=== PATIENT | male | born 1965 | race Caucasian/White ===

== ENCOUNTER → 2018-11-18 | Day surgery (SDC) | payer BC ==
[~2018-11-18] MED LIST: MIDAZOLAM HCL 2 MG/2 ML VIAL ONE; NEXIUM PO; PROPOFOL IV EMULSION 10 MG/ML 50 ML VIAL ONE; TAMIFLU75 MG PO
--- OUTSIDE RECORDS SUMMARY | 2018-11-18 10:44 | XMS REPORT | Clinical Summary ---
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 The patient was then given a 60 minute intravenous infusion of CCK 1.5 ug while dynamic imaging of the abdomen was performed; these images were used to calculate the gallbladder ejection fraction. Findings: There is normal uptake of tracer by the liver with normal excretion into the biliary tree. Tracer proceeds normally into the gallbladder and small bowel. Gallbladder ejection fraction=99% (normal is >30%) Impression: 1. No evidence of acute cholecystitis or common bile duct obstruction. 2. Normal gallbladder ejection fraction. [facility]-[id number] Procedure Note Interface, Radiology Results Incoming - 11/16/2018 1:03 PM GUNSTOCK REPAIRER Procedure: NM HEPATOBILIARY W PHARM (HIDA SCAN W PHARM) Clinical History: G43.A1 Cyclical vomiting intractable, vomiting wiht nausea Technique: The patient was injected with 4 mCi of [id number] intravenously, followed by dynamic imaging of the abdomen in the anterior projection for 1 hour. The patient was then given a 60 minute intravenous infusion of CCK 1.5 ug while dynamic imaging of the abdomen was performed; these images were used to calculate the gallbladder ejection fraction. Findings: There is normal uptake of tracer by the liver with normal excretion into the biliary tree. Tracer proceeds normally into the gallbladder and small bowel. Gallbladder ejection fraction=99% (normal is >30%) Impression: 1. No evidence of acute cholecystitis or common bile duct obstruction. 2. Normal gallbladder ejection fraction. [facility]-[id number] Performing Organization Address City/State/Zipcode Phone Number [facility] [address] [place] [address] after 11/17/2017 Insurance Payer Benefit Subscriber ID Type Phone Address Plan / Group BCBS BCBS xxxxxxxxxxxx PPO CHOICE PPO/TAD COLON PPO Advance Directives Patient has advance care planning documents on file. For more information, jeferson e contact: Kelvin Gonzalez [phone] [place] [address]
[2018-11-18 11:55] VITALS: BP 121/69
== END | disposition home or self-care (01) ==
LOC: OR 10:33
PROVIDERS: ATTEND Internal Medicine
DX: K29.50 Unspecified chronic gastritis without bleeding (principal); K25.9 Gastric ulcer, unspecified as acute or chronic, without hemorrhage or perforation; K29.80 Duodenitis without bleeding; B96.81 Helicobacter pylori [H. pylori] as the cause of diseases classified elsewhere; K20.9 Esophagitis, unspecified; K44.9 Diaphragmatic hernia without obstruction or gangrene; Z88.8 Allergy status to other drugs, medicaments and biological substances; Z01.810 Encounter for preprocedural cardiovascular examination; Z68.33 Body mass index [BMI] 33.0-33.9, adult; Z86.19 Personal history of other infectious and parasitic diseases; Z87.891 Personal history of nicotine dependence
CPT/HCPCS: 43239; 93005; J2250; J2704

== ENCOUNTER → 2018-12-02 | Day surgery (SDC) | payer BC ==
--- OUTSIDE RECORDS SUMMARY | 2018-12-02 10:08 | XMS REPORT | Clinical Summary ---
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 Hospital Radiology Encounter Jagdish Rios MD Intractable cyclical vomiting with nausea (Primary Dx) 11/03/2018 Transcribe Access Orders Jagdish iRos MD 11/01/2018 Transcribe Access Orders after 12/01/2017 Social History Date Tobacco Use Types Packs/Day [...] PHARM Routine 11/16/2018 Intractable cyclical 12:18 PM REED DIPPER vomiting with nausea after 12/01/2017 Results * NM Hepatobiliary W Pharm (HIDA Scan w Pharm) (11/16/2018 12:18 PM REED DIPPER) Narrative Performed At Procedure:NM HEPATOBILIARY W PHARM (HIDA SCAN W PHARM) [facility] Clinical History:G43.A1 Cyclical vomitingintractable, vomiting wiht nausea Technique: The patient was injected with 4 mCi of [id number]-rfybbmhadt intravenously, followed by dynamic imaging of the [...] duct obstruction. 2. Normal gallbladder ejection fraction. [id number] Procedure Note Interface, Radiology Results Incoming - 11/16/2018 1:03 PM REED DIPPER Procedure: NM HEPATOBILIARY W PHARM (HIDA SCAN W PHARM) Clinical History: G43.A1 Cyclical vomiting intractable, vomiting wiht nausea Technique: The patient was injected with 4 mCi of [id number]-46g-ozxioylusz intravenously, followed by dynamic imaging of the [...] duct obstruction. 2. Normal gallbladder ejection fraction. [id number] Performing Organization Address City/State/Zipcode Phone Number [facility] [phone] [place] [address] after 12/01/2017 Insurance Payer Benefit Subscriber ID Type Phone Address Plan / Group BCBS BCBS xxxxxxxxxxxx PPO CHOICE PPO/TAD COLON PPO Advance Directives Patient has advance care planning documents on file. For more information, jeferson e contact: Kelvin Gonzalez [phone] [place] [address]
[2018-12-02 14:40] VITALS: BP 119/60
== END | disposition home or self-care (01) ==
LOC: OR 10:05
PROVIDERS: ATTEND Internal Medicine
DX: K92.1 Melena (principal); D12.5 Benign neoplasm of sigmoid colon; K62.1 Rectal polyp; K64.0 First degree hemorrhoids; R11.2 Nausea with vomiting, unspecified; K44.9 Diaphragmatic hernia without obstruction or gangrene; E66.9 Obesity, unspecified; Z88.8 Allergy status to other drugs, medicaments and biological substances; Z68.33 Body mass index [BMI] 33.0-33.9, adult; Z86.19 Personal history of other infectious and parasitic diseases
CPT/HCPCS: 45380; 45385; J2250; J2704; 45378